=== PATIENT | female | born 1975 | race African-American/Black ===

== ENCOUNTER 2024-06-06 19:10 | Emergency (ER) | payer OTHER ==
[~2024-06-06] VITALS: Ht 172.7 cm; Wt 93.9 kg
[2024-06-06 20:09] LABS: BASOPHILS % 0.3 % (0.0-1.0); EOSINOPHILS # (AUTO) 0.2 (0.0-0.4); EOSINOPHILS % 2.5 % (0.0-6.0); HEMOGLOBIN 12.5 g/dL (12.0-16.0); LYMPHOCYTES # (AUTO) 1.4 (1.0-3.2); LYMPHOCYTES % 15.9 % (18.0-39.1); MEAN CORPUSCULAR HEMOGLOBIN 33.3 pg (28-32); MEAN CORPUSCULAR HGB CONC 33.8 g/dL (31-35); MEAN CORPUSCULAR VOLUME 98.7 fL (81-99); MONOCYTES # (AUTO) 0.6 (0.2-0.8); MONOCYTES % 6.7 % (4.4-11.3); NEUTROPHILS # (AUTO) 6.6 (2.1-6.9); NEUTROPHILS % 73.8 % (38.7-80.0); PLATELET COUNT 180 x10e3/uL (140-360); RED BLOOD COUNT 3.75 x10e6/uL (3.6-5.1); RED CELL DISTRIBUTION WIDTH 14.2 % (11.7-14.4); WHITE BLOOD COUNT 8.94 x10e3/uL (4.8-10.8)
[2024-06-06 20:26] LABS: ANION GAP 16.7 mmol/L (8-16); BILIRUBIN,TOTAL 0.4 mg/dL (0.2-1.2); CALCIUM 10.4 mg/dL (8.4-10.2); CREATININE, SERUM 1.43 mg/dL (0.57-1.11); POTASSIUM 3.7 mmol/L (3.5-5.1); TOTAL PROTEIN 8.1 g/dL (6.5-8.1)
[2024-06-06 20:31] LABS: TROPONIN I 0.002 ng/mL (0-0.300)
[2024-06-06] MEDS ORDERED: IOPAMIDOL 370 MG/ML 100 ML INFUS..BTL INJ ONE (20:36)
[2024-06-06] MEDS: ONDANSETRON HCL INJ 2MG/ML 2ML 2 MG/ML VIAL IV STA (20:43)
[2024-06-06] MEDS: Morphine 4mg INJECTION 4 MG/ML INJ IV STA (20:43)
[2024-06-06 22:21] LABS: INR 1.03; PROTHROMBIN TIME 14.1 seconds (11.9-14.5)
[2024-06-06 22:22] LABS: PARTIAL THROMBOPLASTIN TIME 32.7 seconds (23.8-35.5)
[2024-06-06] MEDS: HEPARIN SOD (PORCINE) 5,000 UNIT/ML VIAL IV ONE (23:18)
[2024-06-06] MEDS: HEPARIN SOD/DEXTROSE 5% 25000 UNIT/250 ML BAG IV SCH (23:18)
[2024-06-06 23:29] VITALS: PULSE 71; RESP 18; TEMP 98.6; O2SAT 98
== END 2024-06-06 23:33 | disposition short-term general hospital (02) ==
LOC: ER 19:16
DX: R06.02 Shortness of breath (principal); R07.9 Chest pain, unspecified; I82.411 Acute embolism and thrombosis of right femoral vein; I82.811 Embolism and thrombosis of superficial veins of right lower extremity
CPT/HCPCS: 36415; 71260; 80053; 82550; 83690; 83880; 84484; 85025; 85610; 85730; 93005; 93970; 99284; J1644; J2270; J2405; Q9967

== ENCOUNTER 2024-07-23 16:40 | Inpatient (IN) | payer MEDICARE, OTHER ==
[~2024-07-23] VITALS: Ht 172.7 cm; Wt 104.3 kg
[~2024-07-23 16:40] MED LIST: ASPIRIN81 MG PO; AZITHROMYCIN250 MG PO; BIKTARVY 50-201 EACH PO; HYDROCODON-ACE1 EA11 PO; ONDANSETRON ODT4 MG PO; ROSUVASTATIN CA10 MG PO; WARFARIN SODIUM10 MG PO
[2024-07-23 16:50] VITALS: RESP 20; TEMP 98.8
[2024-07-23 17:13] LABS: BASOPHILS % 0.4 % (0.0-1.0); EOSINOPHILS # (AUTO) 0.1 (0.0-0.4); HEMOGLOBIN 10.9 g/dL (12.0-16.0); LYMPHOCYTES # (AUTO) 1.5 (1.0-3.2); LYMPHOCYTES % 27.8 % (18.0-39.1); MEAN CORPUSCULAR HEMOGLOBIN 32.6 pg (28-32); MEAN CORPUSCULAR VOLUME 98.8 fL (81-99); MONOCYTES # (AUTO) 0.4 (0.2-0.8); MONOCYTES % 6.8 % (4.4-11.3); NEUTROPHILS # (AUTO) 3.4 (2.1-6.9); NEUTROPHILS % 62.6 % (38.7-80.0); PLATELET COUNT 289 x10e3/uL (140-360); RED BLOOD COUNT 3.34 x10e6/uL (3.6-5.1); RED CELL DISTRIBUTION WIDTH 13.9 % (11.7-14.4); WHITE BLOOD COUNT 5.47 x10e3/uL (4.8-10.8)
[2024-07-23] MEDS: SODIUM CHLORIDE 0.9% 1000ML 1,000 ML IV STA (17:30)
[2024-07-23 17:37] LABS: INR 1.46; PARTIAL THROMBOPLASTIN TIME 32.4 seconds (23.8-35.5); PROTHROMBIN TIME 18.9 seconds (11.9-14.5)
[2024-07-23 17:47] LABS: ALBUMIN 3.8 g/dL (3.5-5.0); ALBUMIN/GLOBULIN RATIO 1.1 (0.8-2.0); ANION GAP 12.9 mmol/L (8-16); BILIRUBIN,TOTAL 0.3 mg/dL (0.2-1.2); CALCIUM 9.4 mg/dL (8.4-10.2); CREATININE, SERUM 0.96 mg/dL (0.57-1.11); MAGNESIUM 1.8 MG/DL (1.3-2.1); POTASSIUM 3.9 mmol/L (3.5-5.1); TOTAL PROTEIN 7.4 g/dL (6.5-8.1)
[2024-07-23 17:52] LABS: TROPONIN I 0.004 ng/mL (0-0.300)
[2024-07-23] MEDS ORDERED: IOPAMIDOL 370 MG/ML 100 ML INFUS..BTL INJ ONE (18:16)
[2024-07-23] MEDS: Morphine 4mg INJECTION 4 MG/ML INJ IV ONE (18:47)
[2024-07-23] MEDS: ONDANSETRON HCL INJ 2MG/ML 2ML 2 MG/ML VIAL IV STA (18:47)
[2024-07-23] MEDS: ENOXAPARIN SODIUM INJ 100 MG/ML SYR SC STA (18:47)
[2024-07-23] MEDS: WARFARIN SOD 5 MG TAB PO ONE (21:37)
[2024-07-23] MEDS ORDERED: SODIUM CHLORIDE FLUSH 10 ML SYR INJ PRN (22:00)
[2024-07-23] MEDS: HYDRALAZINE HCL 20 MG/ML VIAL IV PRN (22:49)
[2024-07-23] MEDS: ONDANSETRON HCL INJ 2MG/ML 2ML 2 MG/ML VIAL IV PRN (22:49)
[2024-07-23 23:00] VITALS: PULSE 73
[2024-07-23 23:35] VITALS: PULSE 79; RESP 20; O2SAT 98
[2024-07-23] MEDS: CLONIDINE HCL 0.1 MG TAB PO ONE (23:45)
[2024-07-23 23:50] VITALS: BP 167/112; PULSE 77; RESP 20; TEMP 98.6; O2SAT 100
[2024-07-24] VITALS (11 sets, daily range): BP systolic 113–157; BP diastolic 79–98; PULSE 64–77; RESP 18–20; TEMP 97.7–98.5; O2SAT 95–100
[2024-07-24] MEDS: Morphine 4mg INJECTION 4 MG/ML INJ IV PRN (01:31)
[2024-07-24] MEDS ORDERED: ESIDRIX25 MG PO (04:29)
[2024-07-24 06:53] LABS: CHOL/HDL RATIO 3.8 (3.0-3.6)
[2024-07-24 07:13] LABS: CREATINE KINASE 285 IU/L (29-168)
[2024-07-24 07:22] LABS: TROPONIN I < 0.001 ng/mL (0-0.300)
[2024-07-24 15:08] LABS: TROPONIN I 0.012 ng/mL (0-0.300)
[2024-07-24] MEDS ORDERED: ENOXAPARIN SODIUM INJ 100 MG/ML SYR SC SCH ×2 (18:30→21:00)
[2024-07-24] MEDS: ENOXAPARIN SODIUM INJ 100 MG/ML SYR SC SCH (21:02)
[2024-07-25] VITALS (9 sets, daily range): BP systolic 128–164; BP diastolic 87–102; PULSE 61–77; RESP 18; TEMP 97.6–98.4; O2SAT 96–100
[2024-07-25 06:46] LABS: BASOPHILS % 0.5 % (0.0-1.0); EOSINOPHILS # (AUTO) 0.2 (0.0-0.4); EOSINOPHILS % 4.7 % (0.0-6.0); HEMATOCRIT 33.6 % (34.2-44.1); HEMOGLOBIN 10.9 g/dL (12.0-16.0); LYMPHOCYTES # (AUTO) 1.6 (1.0-3.2); LYMPHOCYTES % 38.2 % (18.0-39.1); MEAN CORPUSCULAR HEMOGLOBIN 32.5 pg (28-32); MEAN CORPUSCULAR HGB CONC 32.4 g/dL (31-35); MEAN CORPUSCULAR VOLUME 100.3 fL (81-99); MONOCYTES # (AUTO) 0.4 (0.2-0.8); MONOCYTES % 8.4 % (4.4-11.3); NEUTROPHILS # (AUTO) 2.1 (2.1-6.9); PLATELET COUNT 268 x10e3/uL (140-360); RED BLOOD COUNT 3.35 x10e6/uL (3.6-5.1); RED CELL DISTRIBUTION WIDTH 13.7 % (11.7-14.4); WHITE BLOOD COUNT 4.29 x10e3/uL (4.8-10.8)
[2024-07-25 07:05] LABS: INR 1.85; PROTHROMBIN TIME 22.8 seconds (11.9-14.5)
[2024-07-25 07:24] LABS: ANION GAP 12.6 mmol/L (8-16); CALCIUM 9.2 mg/dL (8.4-10.2); CREATININE, SERUM 0.85 mg/dL (0.57-1.11); MAGNESIUM 1.7 MG/DL (1.3-2.1); POTASSIUM 3.6 mmol/L (3.5-5.1)
[2024-07-25 07:40] LABS: PHOSPHORUS 2.9 MG/DL (2.3-4.7)
[2024-07-25] MEDS: HYDROCHLOROTHIAZIDE 25 MG TAB PO SCH (09:10)
[2024-07-25] MEDS: WARFARIN SOD 5 MG TAB PO SCH (16:59)
[2024-07-25] MEDS: [UNRECOGNIZED DRUG - OTHER] PO SCH (17:00)
[2024-07-26] VITALS (8 sets, daily range): BP systolic 128–166; BP diastolic 82–97; PULSE 66–83; RESP 18–19; TEMP 97.7–98.8; O2SAT 97–100
[2024-07-26 07:12] LABS: INR 1.65; PROTHROMBIN TIME 20.9 seconds (11.9-14.5)
[2024-07-26] MEDS: DIPHENHYDRAMINE HCL 25 MG CAP PO PRN (09:39)
[2024-07-26] MEDS ORDERED: ACETAMINOPHEN 325 MG TAB PO PRN (11:00)
[2024-07-26] MEDS: METHOCARBAMOL 500 MG TAB PO PRN (14:38)
[2024-07-26] MEDS: WARFARIN SOD 5 MG TAB PO SCH (17:07)
[2024-07-27 03:12] VITALS: BP 121/85; PULSE 83; RESP 18; TEMP 98.3; O2SAT 100
[2024-07-27 06:16] LABS: BASOPHILS % 0.5 % (0.0-1.0); EOSINOPHILS # (AUTO) 0.2 (0.0-0.4); EOSINOPHILS % 4.1 % (0.0-6.0); HEMATOCRIT 35.6 % (34.2-44.1); HEMOGLOBIN 11.8 g/dL (12.0-16.0); LYMPHOCYTES # (AUTO) 1.5 (1.0-3.2); LYMPHOCYTES % 34.6 % (18.0-39.1); MEAN CORPUSCULAR HEMOGLOBIN 32.8 pg (28-32); MEAN CORPUSCULAR HGB CONC 33.1 g/dL (31-35); MEAN CORPUSCULAR VOLUME 98.9 fL (81-99); MONOCYTES # (AUTO) 0.6 (0.2-0.8); MONOCYTES % 13.6 % (4.4-11.3); PLATELET COUNT 249 x10e3/uL (140-360); RED CELL DISTRIBUTION WIDTH 13.5 % (11.7-14.4); WHITE BLOOD COUNT 4.34 x10e3/uL (4.8-10.8)
[2024-07-27 06:29] LABS: INR 1.51; PROTHROMBIN TIME 19.5 seconds (11.9-14.5)
[2024-07-27 06:45] LABS: ANION GAP 13.8 mmol/L (8-16); CALCIUM 9.5 mg/dL (8.4-10.2); CREATININE, SERUM 1.1 mg/dL (0.57-1.11); POTASSIUM 3.8 mmol/L (3.5-5.1)
[2024-07-27] MEDS: PANTOPRAZOLE SOD 40 MG TABEC PO SCH (08:31)
[2024-07-27 08:39] VITALS: BP 146/90; PULSE 72; RESP 18; TEMP 98; O2SAT 100
[2024-07-27] MEDS: ENOXAPARIN SODIUM INJ 100 MG/ML SYR SC SCH (10:03)
[2024-07-27 12:59] VITALS: BP 130/97; PULSE 78; RESP 18; TEMP 98.3; O2SAT 100
[2024-07-27 15:53] VITALS: BP 118/75; PULSE 83; RESP 18; TEMP 98.2; O2SAT 99
[2024-07-27] MEDS ORDERED: OXYCODONE/ACETAMINOPHEN 5-325 1 EACH TABLET PO PRN (17:30)
[2024-07-27 20:00] VITALS: BP 134/89; PULSE 77; RESP 17; TEMP 98.1; O2SAT 100
[2024-07-28] VITALS: BP 126/78; PULSE 80; RESP 17; TEMP 98.7; O2SAT 100
[2024-07-28 04:00] VITALS: BP 135/85; PULSE 80; RESP 17; TEMP 98.2; O2SAT 100
[2024-07-28 08:42] VITALS: BP 147/111; PULSE 72; RESP 18; TEMP 98.5; O2SAT 100
[2024-07-28 11:48] LABS: INR 1.93; PROTHROMBIN TIME 23.6 seconds (11.9-14.5)
[2024-07-28 11:50] VITALS: BP 143/95; PULSE 69; RESP 19; TEMP 98.6; O2SAT 100
[2024-07-28 15:58] VITALS: BP 164/99; PULSE 75; RESP 17; TEMP 98.4; O2SAT 100
[2024-07-28 20:00] VITALS: BP 131/94; PULSE 77; RESP 17; TEMP 98.3; O2SAT 100
[2024-07-29] VITALS (7 sets, daily range): BP systolic 133–165; BP diastolic 85–101; PULSE 69–81; RESP 18–20; TEMP 97.7–98.9; O2SAT 99–100
[2024-07-29 08:16] LABS: INR 1.84; PROTHROMBIN TIME 22.7 seconds (11.9-14.5)
[2024-07-29] MEDS: WARFARIN SOD 3 MG TAB PO ONE (18:04)
[2024-07-29] MEDS: WARFARIN SOD 5 MG TAB PO ONE (18:04)
[2024-07-30] VITALS: BP 135/103; PULSE 69; RESP 18; TEMP 98.3; O2SAT 100
[2024-07-30 04:00] VITALS: BP 128/92; PULSE 73; RESP 17; TEMP 98.3; O2SAT 100
[2024-07-30 07:16] LABS: INR 1.96; PROTHROMBIN TIME 23.9 seconds (11.9-14.5)
[2024-07-30 08:49] VITALS: BP 134/91; PULSE 80; RESP 21; TEMP 98.6; O2SAT 100
[2024-07-30 08:52] VITALS: BP 134/91; PULSE 80; RESP 21; TEMP 98.6; O2SAT 100
[2024-07-30 11:42] VITALS: BP 137/91; PULSE 75; RESP 20; TEMP 98.1; O2SAT 100
[2024-07-30] MEDS ORDERED: WARFARIN SODIUM3 MG PO (14:36)
[2024-07-30] MEDS ORDERED: PANTOPRAZOLE SO40 MG PO (14:36)
[2024-07-30 15:49] VITALS: BP 124/76; PULSE 76; RESP 21; TEMP 97.9; O2SAT 98
== END 2024-07-30 16:20 | disposition home or self-care (01) | DRG 813 ==
LOC: ER 16:59 → ERHOLD 21:59 → MED/SURG3 23:52 → OBSVTOIN 07-25 16:02
PROVIDERS: ADMIT Internal Medicine; ATTEND Internal Medicine
DX: D68.9 Coagulation defect, unspecified (principal); R07.89 Other chest pain; M32.9 Systemic lupus erythematosus, unspecified; M06.9 Rheumatoid arthritis, unspecified; R11.0 Nausea; E78.5 Hyperlipidemia, unspecified; G89.29 Other chronic pain; D64.9 Anemia, unspecified; D72.819 Decreased white blood cell count, unspecified; Z21 Asymptomatic human immunodeficiency virus [HIV] infection status; Z79.01 Long term (current) use of anticoagulants; Z86.718 Personal history of other venous thrombosis and embolism
CPT/HCPCS: 36415; 71045; 71260; 80048; 80053; 80061; 82550; 83036; 83735; 83880; 84100; 84484; 85025; 85379; 85610; 85730; 93005; 93306; 94799; 99284; G0378; J0360; J1650; J2270; J2405; J2470; J7030; Q9967

== ENCOUNTER 2024-08-03 19:34 | Inpatient (IN) | payer MEDICARE, OTHER ==
[~2024-08-03] VITALS: Ht 172.7 cm; Wt 104.3 kg
[~2024-08-03 19:34] MED LIST changes: +ESIDRIX25 MG PO; +PANTOPRAZOLE SO40 MG PO; +WARFARIN SODIUM3 MG PO
[2024-08-03 19:38] VITALS: PULSE 86; RESP 18
[2024-08-03 20:16] LABS: BASOPHILS % 0.3 % (0.0-1.0); EOSINOPHILS % 1.3 % (0.0-6.0); LYMPHOCYTES % 30.2 % (18.0-39.1); MONOCYTES % 7.3 % (4.4-11.3); NEUTROPHILS % 60.6 % (38.7-80.0); RED CELL DISTRIBUTION WIDTH 13.3 % (11.7-14.4)
[2024-08-03 20:20] LABS: INR 1.45
[2024-08-03 20:30] LABS: EST GLOMERULAR FILTRATION RATE 62.0 ML/MIN (>=60)
[2024-08-03 21:00] VITALS: BP 159/100; PULSE 80; RESP 19; TEMP 98; O2SAT 100
[2024-08-03] MEDS: WARFARIN SOD 5 MG TAB PO ONE (21:10)
[2024-08-03] MEDS: ENOXAPARIN SODIUM INJ 100 MG/ML SYR SC SCH (21:11)
[2024-08-03] MEDS ORDERED: SODIUM CHLORIDE FLUSH 10 ML SYR INJ PRN (21:15)
[2024-08-03] MEDS ORDERED: POLYETHYLENE GLYCOL 3350 17 GM PACK PO PRN (22:15)
[2024-08-03 22:30] VITALS: BP 159/106; PULSE 80; RESP 20; TEMP 98; O2SAT 100
[2024-08-03 22:37] VITALS: BP 159/100; PULSE 80; RESP 19; TEMP 98; O2SAT 100
[2024-08-03 23:17] VITALS: PULSE 85; RESP 16; O2SAT 96
[2024-08-03] MEDS: Morphine 4mg INJECTION 4 MG/ML INJ IV PRN (23:30)
[2024-08-04] VITALS (9 sets, daily range): BP systolic 123–153; BP diastolic 81–109; PULSE 67–85; RESP 16–20; TEMP 97.7–98.6; O2SAT 97–100
[2024-08-04 06:20] LABS: BASOPHILS % 0.5 % (0.0-1.0); EOSINOPHILS % 2.0 % (0.0-6.0); LYMPHOCYTES % 39.2 % (18.0-39.1); MONOCYTES % 8.4 % (4.4-11.3); NEUTROPHILS % 49.7 % (38.7-80.0); RED CELL DISTRIBUTION WIDTH 13.6 % (11.7-14.4)
[2024-08-04 06:28] LABS: INR 1.6
[2024-08-04] MEDS: HYDRALAZINE HCL 20 MG/ML VIAL IV PRN (06:28)
[2024-08-04 06:42] LABS: EST GLOMERULAR FILTRATION RATE 75.0 ML/MIN (>=60); PHOSPHORUS 3.4 MG/DL (2.3-4.7)
[2024-08-04] MEDS ORDERED: HYDROCODONE/APAP 5MG-325MG TAB PO PRN (08:15)
[2024-08-04] MEDS: ONDANSETRON HCL INJ 2MG/ML 2ML 2 MG/ML VIAL IV PRN (08:34)
[2024-08-04] MEDS: PANTOPRAZOLE SOD 40 MG TABEC PO SCH (08:34)
[2024-08-04] MEDS: DOCUSATE SODIUM 100 MG CAP PO SCH (08:34)
[2024-08-04] MEDS: KETOROLAC TROMETHAMINE 30 MG/ML VIAL IV STA (08:35)
[2024-08-04] MEDS: MAGNESIUM SULFATE 2GM/50ML 50 ML IV ONE (11:28)
[2024-08-04] MEDS: HYDROMORPHONE 1MG/1ML INJ IV STA (13:26)
[2024-08-04] MEDS ORDERED: NALOXONE HCL INJ 0.4 MG/ML AMP IV PRN (14:00)
[2024-08-04] MEDS ORDERED: WARFARIN SOD 5 MG TAB PO SCH (17:00)
[2024-08-04] MEDS: HYDROMORPHONE 1MG/1ML INJ IV PRN (21:21)
[2024-08-05] VITALS (9 sets, daily range): BP systolic 139–183; BP diastolic 63–104; PULSE 72–102; RESP 18–20; TEMP 97.8–98.7; O2SAT 98–100
[2024-08-05 05:54] LABS: BASOPHILS % 0.4 % (0.0-1.0); EOSINOPHILS % 2.0 % (0.0-6.0); LYMPHOCYTES % 34.5 % (18.0-39.1); MONOCYTES % 9.1 % (4.4-11.3); NEUTROPHILS % 53.6 % (38.7-80.0); RED CELL DISTRIBUTION WIDTH 13.3 % (11.7-14.4)
[2024-08-05 06:11] LABS: INR 1.95
[2024-08-05 06:22] LABS: EST GLOMERULAR FILTRATION RATE 74.0 ML/MIN (>=60)
[2024-08-05] MEDS: PANTOPRAZOLE SOD 40 MG TABEC PO SCH (07:30)
[2024-08-05] MEDS: ASPIRIN 81 MG CHEW TAB PO SCH (08:08)
[2024-08-05] MEDS: HYDROCHLOROTHIAZIDE 25 MG TAB PO SCH (08:08)
[2024-08-05] MEDS ORDERED: WARFARIN SOD 5 MG TAB PO SCH (09:00)
[2024-08-05] MEDS: ACETAMINOPHEN 325 MG TAB PO PRN (20:28)
[2024-08-05] MEDS: SODIUM CHLORIDE 0.9% 1000ML 1,000 ML IV SCH (22:36)
[2024-08-05] MEDS: METOPROLOL SUCCINATE 25 MG TAB XL PO ONE (22:37)
[2024-08-05] MEDS: LORAZEPAM INJ 2 MG/ML VIAL IV STA (22:37)
[2024-08-06] VITALS (10 sets, daily range): BP systolic 138–156; BP diastolic 88–108; PULSE 60–100; RESP 18–20; TEMP 98.4–99.1; O2SAT 99–100
[2024-08-06 06:02] LABS: INR 2.01
[2024-08-06 06:13] LABS: EST GLOMERULAR FILTRATION RATE 69.0 ML/MIN (>=60)
[2024-08-06] MEDS: ALPRAZOLAM 0.5 MG TAB PO PRN (11:59)
[2024-08-07] VITALS (11 sets, daily range): BP systolic 116–162; BP diastolic 69–109; PULSE 61–81; RESP 18–20; TEMP 98.1–98.6; O2SAT 96–100
[2024-08-07 05:50] LABS: INR 1.56
[2024-08-07] MEDS: APIXABAN 5 MG TABLET PO SCH (13:36)
[2024-08-08] VITALS (8 sets, daily range): BP systolic 110–124; BP diastolic 70–79; PULSE 79–96; RESP 18–20; TEMP 97.7–98.6; O2SAT 93–100
[2024-08-08 05:57] LABS: INR 1.42
[2024-08-08] MEDS: POLYETHYLENE GLYCOL 3350 17 GM PACK PO PRN (08:08)
[2024-08-08] MEDS ORDERED: IOPAMIDOL 370 MG/ML 100 ML INFUS..BTL INJ ONE (19:01)
[2024-08-09] VITALS (12 sets, daily range): BP systolic 109–161; BP diastolic 65–101; PULSE 81–112; RESP 18–20; TEMP 97.8–98.6; O2SAT 93–98
[2024-08-09 06:10] LABS: INR 1.56
[2024-08-09 06:14] LABS: BASOPHILS % 0.3 % (0.0-1.0); EOSINOPHILS % 2.3 % (0.0-6.0); LYMPHOCYTES % 20.9 % (18.0-39.1); MONOCYTES % 10.1 % (4.4-11.3); NEUTROPHILS % 65.5 % (38.7-80.0); RED CELL DISTRIBUTION WIDTH 13.4 % (11.7-14.4)
[2024-08-09 06:21] LABS: EST GLOMERULAR FILTRATION RATE 66.0 ML/MIN (>=60)
[2024-08-09] MEDS: SODIUM CHLORIDE 0.9% 250ML 250 ML ONE (10:15)
[2024-08-09] MEDS: SODIUM CHLORIDE 0.9% 250ML 250 ML IV ONE (10:15)
[2024-08-09] MEDS ORDERED: HYDROCODONE/APAP 5MG-325MG TAB PO PRN (13:15)
[2024-08-09 14:01] LABS: % IRON SATURATION 46.0 % (15-50); LACTATE DEHYDROGENASE 245.0 IU/L (125-220)
[2024-08-09] MEDS: SODIUM CHLORIDE 0.9% 100 ML ONE (14:40)
[2024-08-09 20:37] LABS: BASOPHILS % 0.2 % (0.0-1.0); EOSINOPHILS % 2.4 % (0.0-6.0); LYMPHOCYTES % 17.2 % (18.0-39.1); MONOCYTES % 8.0 % (4.4-11.3); NEUTROPHILS % 71.3 % (38.7-80.0); RED CELL DISTRIBUTION WIDTH 14.4 % (11.7-14.4)
[2024-08-09] MEDS: HYDROMORPHONE 1MG/1ML INJ IV PRN (21:05)
[2024-08-10] VITALS (8 sets, daily range): BP systolic 115–147; BP diastolic 77–96; PULSE 80–89; RESP 16–21; TEMP 97.6–98.4; O2SAT 96–100
[2024-08-10] MEDS ORDERED: IOPAMIDOL 370 MG/ML 100 ML INFUS..BTL INJ ONE (05:57)
[2024-08-10 06:09] LABS: BASOPHILS % 0.2 % (0.0-1.0); EOSINOPHILS % 4.1 % (0.0-6.0); LYMPHOCYTES % 17.6 % (18.0-39.1); MONOCYTES % 8.7 % (4.4-11.3); NEUTROPHILS % 68.5 % (38.7-80.0); RED CELL DISTRIBUTION WIDTH 14.6 % (11.7-14.4)
[2024-08-10 06:44] LABS: FOLATE (REF LAB) 8.3 ng/mL (>3.0)
[2024-08-10 06:50] LABS: EST GLOMERULAR FILTRATION RATE 75.0 ML/MIN (>=60)
[2024-08-10] MEDS: MAGNESIUM SULF 1GRAM/DEXTROSE 100 ML IV ONE (10:03)
[2024-08-11] VITALS (7 sets, daily range): BP systolic 132–153; BP diastolic 84–99; PULSE 71–93; RESP 16–20; TEMP 97.2–98.6; O2SAT 96–100
[2024-08-12] VITALS (9 sets, daily range): BP systolic 130–150; BP diastolic 78–93; PULSE 69–98; RESP 18–20; TEMP 97.3–98.9; O2SAT 92–100
[2024-08-12 07:39] LABS: BASOPHILS % 0.3 % (0.0-1.0); EOSINOPHILS % 3.5 % (0.0-6.0); LYMPHOCYTES % 18.8 % (18.0-39.1); MONOCYTES % 9.8 % (4.4-11.3); NEUTROPHILS % 67.1 % (38.7-80.0); RED CELL DISTRIBUTION WIDTH 14.4 % (11.7-14.4)
[2024-08-12 08:25] LABS: EST GLOMERULAR FILTRATION RATE 71.0 ML/MIN (>=60)
[2024-08-12] MEDS: POTASSIUM CHLORIDE 20 MEQ TAB CR PO STA (12:50)
[2024-08-13] VITALS (9 sets, daily range): BP systolic 126–148; BP diastolic 78–92; PULSE 71–100; RESP 18–20; TEMP 97.6–98.7; O2SAT 95–100
[2024-08-13 05:53] LABS: BASOPHILS % 0.3 % (0.0-1.0); EOSINOPHILS % 2.7 % (0.0-6.0); LYMPHOCYTES % 21.8 % (18.0-39.1); MONOCYTES % 11.7 % (4.4-11.3); NEUTROPHILS % 63.0 % (38.7-80.0); RED CELL DISTRIBUTION WIDTH 14.5 % (11.7-14.4)
[2024-08-13 07:34] LABS: EST GLOMERULAR FILTRATION RATE 60.0 ML/MIN (>=60)
[2024-08-13 11:06] LABS: HAPTOGLOBIN 141.0 mg/dL (42-296)
[2024-08-13] MEDS: ALPRAZOLAM 0.5 MG TAB PO PRN (12:10)
[2024-08-14] VITALS (8 sets, daily range): BP systolic 121–149; BP diastolic 63–80; PULSE 74–89; RESP 18–20; TEMP 98–98.7; O2SAT 97–100
[2024-08-14 05:48] LABS: BASOPHILS % 0.4 % (0.0-1.0); EOSINOPHILS % 2.8 % (0.0-6.0); LYMPHOCYTES % 22.1 % (18.0-39.1); MONOCYTES % 9.2 % (4.4-11.3); NEUTROPHILS % 64.9 % (38.7-80.0); RED CELL DISTRIBUTION WIDTH 14.3 % (11.7-14.4)
[2024-08-14 06:24] LABS: EST GLOMERULAR FILTRATION RATE 62.0 ML/MIN (>=60)
[2024-08-14] MEDS ORDERED: APIXABAN 5 MG TABLET PO SCH (09:00)
[2024-08-15] VITALS (7 sets, daily range): BP systolic 121–129; BP diastolic 76–97; PULSE 71–86; RESP 16–20; TEMP 97.3–98.9; O2SAT 94–100
[2024-08-15 05:35] LABS: BASOPHILS % 0.5 % (0.0-1.0); EOSINOPHILS % 3.6 % (0.0-6.0); LYMPHOCYTES % 22.8 % (18.0-39.1); MONOCYTES % 8.3 % (4.4-11.3); NEUTROPHILS % 64.2 % (38.7-80.0); RED CELL DISTRIBUTION WIDTH 14.5 % (11.7-14.4)
[2024-08-15 06:01] LABS: EST GLOMERULAR FILTRATION RATE 57.0 ML/MIN (>=60)
[2024-08-15] MEDS ORDERED: APIXABAN 5 MG TABLET PO SCH (17:00)
== END 2024-08-15 16:15 | disposition other institution (70) | DRG 546 ==
LOC: ER 19:37 → ERHOLD 21:07 → MED/SURG3 22:27 → MED/SURG2 08-06 16:14
PROVIDERS: ADMIT Internal Medicine; ATTEND Internal Medicine
PROC: 30233N1 Transfusion of Nonautologous Red Blood Cells into Peripheral Vein, Percutaneous Approach (ICD-10-PCS; principal; 2024-08-09)
DX: M32.9 Systemic lupus erythematosus, unspecified (principal); D62 Acute posthemorrhagic anemia; R18.8 Other ascites; D84.81 Immunodeficiency due to conditions classified elsewhere; R07.9 Chest pain, unspecified; R09.1 Pleurisy; T45.516A Underdosing of anticoagulants, initial encounter; Z21 Asymptomatic human immunodeficiency virus [HIV] infection status; M06.9 Rheumatoid arthritis, unspecified; F41.9 Anxiety disorder, unspecified; F41.0 Panic disorder [episodic paroxysmal anxiety]; F32.89 Other specified depressive episodes; R53.1 Weakness; R53.83 Other fatigue; R11.2 Nausea with vomiting, unspecified; R29.6 Repeated falls; K59.00 Constipation, unspecified; G47.00 Insomnia, unspecified; R19.7 Diarrhea, unspecified; K76.9 Liver disease, unspecified; C57.9 Malignant neoplasm of female genital organ, unspecified; Z91.138 Patient's unintentional underdosing of medication regimen for other reason; Y92.009 Unspecified place in unspecified non-institutional (private) residence as the place of occurrence of the external cause; Z86.718 Personal history of other venous thrombosis and embolism; Z79.891 Long term (current) use of opiate analgesic; Z87.891 Personal history of nicotine dependence; Z79.82 Long term (current) use of aspirin; Z83.3 Family history of diabetes mellitus; Z80.0 Family history of malignant neoplasm of digestive organs; Z82.3 Family history of stroke; Z82.49 Family history of ischemic heart disease and other diseases of the circulatory system; Z84.1 Family history of disorders of kidney and ureter; Z90.49 Acquired absence of other specified parts of digestive tract; Z90.710 Acquired absence of both cervix and uterus
CPT/HCPCS: 36415; 71045; 74174; 74177; 74470; 76705; 76856; 80048; 80053; 82550; 82607; 82728; 82746; 83010; 83540; 83615; 83735; 84100; 84439; 84443; 84466; 84484; 85025; 85045; 85379; 85610; 85730; 86304; 86850; 86900; 86920; 93005; 93976; 94799; 99252; 99284; J0360; J1171; J1650; J1885; J2060; J2270; J2405; J2470; J3475; J7030; J7050; P9016; Q9967